=== PATIENT | male | born 1955 | race Caucasian/White ===

== ENCOUNTER 2017-02-13 02:49 | Emergency (ER) | payer MEDICAID, MEDICARE ==
[2017-02-13] MEDS ORDERED: Aspirin Low Dose CHEW TAB* 81 MG PO ONE (03:09)
[2017-02-13 03:34] LABS: Add Diff/Slide Review? Slide Review Added; Comments Flag Yes; Hematocrit 46 % (42-52); Hemoglobin 15.3 g/dl (14.0-18.0); Mean Corpuscular HGB Conc 33 g/dl (31-36); Mean Corpuscular Hemoglobin 30 pg (27-31); Mean Corpuscular Volume 91 fL (80-94); Mean Platelet Volume 9 um3 (7.4-10.4); Red Blood Count 5.03 10^6/ul (4.0-5.4); Red Cell Distribution Width 13 % (10.5-15); White Blood Count 8.9 10^3/ul (3.5-10.8)
[2017-02-13 03:49] LABS: Albumin 4.2 g/dL (3.2-5.2); BUN/Creatinine Ratio 14.1 (8-20); Calcium 9.5 mg/dL (8.6-10.3); EGFR African American 144.1 (>60); EGFR Non-African American 112.1 (>60); Globulin 3.1 g/dL (2-4); Magnesium 2.1 mg/dL (1.9-2.7); Total Bilirubin 0.4 mg/dL (0.2-1.0); Total Protein 7.3 g/dL (6.4-8.9)
[2017-02-13 04:08] LABS: Eosinophils % 3 % (0-6); Neutrophil % 70 % (38-83); RBC Morphology Normal (Normal); Reactive Lymph % 10 % (0-6)
--- NOTE | 2017-02-13 04:41 | ED ---
Asmita Bee Erika, scribed for Jim Keen MD on 02/13/17 at 0320 . Shortness of Breath - HPI Summary HPI Summary: Patient is a 61-year-old male presenting to the ED with a CC of SOB. Patient reports that he has been feeling mildly SOB for a few weeks intermittently. Yesterday, patient also developed pain is his chest, back, and left arm. Patient then developed diffuse tingling. Patient came in tonight because the SOB and tingling worsened. Symptoms were slightly alleviated by Spiriva at 00: 00 and albuterol at 02:00. He does also report he has had cold-like symptoms including cough for about 1 week. Patient has a Hx COPD, but does not use home O2. He smokes 10 cigarettes/day. - History of Current Complaint Chief Complaint: EDChestPainROMI Time Seen by Provider: 02/13/17 03:01 Hx Obtained From: Patient Onset/Duration: Gradual Onset, Lasting Weeks, Worse Since - tonight Timing: Intermittent Episodes Lasting: - minutes/hours Current Severity: Moderate Alleviating Factors: Bronchodilators - Allergy/Home Medications Allergies/Adverse Reactions: Allergies Allergy/AdvReac Type Severity Reaction Status Date / Time No Known Allergies Allergy Verified 03/13/15 09:18 PMH/Surg Hx/FS Hx/Imm Hx Endocrine/Hematology History: Reports: Hx Diabetes Cardiovascular History: Reports: Hx Angina, Hx Coronary Artery Disease - STENT, X3, Hx Hypercholesterolemia, Hx Hypertension, Hx Myocardial Infarction Respiratory History: Reports: Hx Chronic Obstructive Pulmonary Disease (COPD) Musculoskeletal History: Denies: Hx Scoliosis Infectious Disease History: No Infectious Disease History: Reports: Hx Shingles - 2011 Denies: Traveled Outside the [place] in Last 30 Days - Family History Known Family History: Positive: Cardiac Disease - Social History Alcohol Use: None Hx Substance Use: No Substance Use Type: Reports: None Hx Tobacco Use: Yes Smoking Status (MU): Light Every Day Tobacco Smoker Type: Cigarettes Length of Time of Smoking/Using Tobacco: SINCE AGE 11 Have You Smoked in the Last Year: Yes Review of Systems Positive: Chest Pain Positive: Shortness Of Breath, Cough Positive: Myalgia - back and left arm pain Positive: Paresthesia All Other Systems Reviewed And Are Negative: Yes Physical Exam Triage Information Reviewed: Yes Vital Signs On Initial Exam: Initial Vitals Temp Pulse Resp BP Pulse Ox 98 F 78 20 145/74 96 02/13/17 02:51 02/13/17 02:51 02/13/17 02:51 02/13/17 02:51 02/13/17 02:51 Vital Signs Reviewed: Yes Appearance: Positive: Well-Appearing, No Pain Distress Skin: Positive: Warm Head/Face: Positive: Normal Head/Face Inspection Eyes: Positive: [place] ENT: Positive: Hearing grossly normal Neck: Positive: Supple Respiratory/Lung Sounds: Positive: Breath Sounds Present, Wheezes - few scattered expiratory Cardiovascular: Positive: RRR Abdomen Description: Positive: Nontender, Soft Bowel Sounds: Positive: Present Musculoskeletal: Positive: Strength/ROM Intact Neurological: Positive: Sensory/Motor Intact, Alert, Oriented to Person Place, Time Psychiatric: Positive: Affect/Mood Appropriate Diagnostics - Vital Signs Vital Signs Temp Pulse Resp BP Pulse Ox 02/13/17 02:51 98 F 78 20 145/74 96 - Laboratory Lab Results: Lab Results 02/13/17 02/13/17 02/13/17 Range/Units 03:20 03:20 03:20 WBC 8.9 (3.5-10.8) 10^3/ul RBC 5.03 (4.0-5.4) 10^6/ul Hgb 15.3 (14.0-18.0) g/dl Hct 46 (42-52) % MCV 91 (80-94) fL MCH 30 (27-31) pg MCHC 33 (31-36) g/dl RDW 13 (10.5-15) % Plt Count 192 (150-450) 10^3/ul MPV 9 (7.4-10.4) um3 Neut % (Auto) 72.1 (38-83) % Lymph % (Auto) 17.6 L (25-47) % [place] % (Auto) 5.5 (1-9) % Eos % (Auto) 2.9 (0-6) % Baso % (Auto) 1.9 (0-2) % Absolute Neuts (auto) 6.4 (1.5-7.7) 10^3/ul Absolute Lymphs (auto) 1.6 (1.0-4.8) 10^3/ul Absolute Monos (auto) 0.5 (0-0.8) 10^3/ul Absolute Eos (auto) 0.3 (0-0.6) 10^3/ul Absolute Basos (auto) 0.2 (0-0.2) 10^3/ul Absolute Nucleated RBC 0 10^3/ul Neutrophils % 70 (38-83) % Lymphocytes % 11 L (25-47) % Reactive Lymphs % 10 H (0-6) % Monocytes % 5 (0-13) % Eosinophils % 3 (0-6) % Basophils % 1 (0-2) % Nucleated RBC % 0 Normal RBC Morphology Normal (Normal) Sodium 138 (133-145) mmol/L Potassium 4.0 (3.5-5.0) mmol/L Chloride 106 (101-111) mmol/L Carbon Dioxide 27 (22-32) mmol/L Anion Gap 5 (2-11) mmol/L BUN 10 (6-24) mg/dL Creatinine 0.71 (0.67-1.17) mg/dL Est GFR ( Amer) 144.1 (>60) Est GFR (Non-Af Amer) 112.1 (>60) BUN/Creatinine Ratio 14.1 (8-20) Glucose 143 H (70-100) mg/dL Lactic Acid 1.4 (0.5-2.0) mmol/L Calcium 9.5 (8.6-10.3) mg/dL Magnesium 2.1 (1.9-2.7) mg/dL Total Bilirubin 0.40 (0.2-1.0) mg/dL AST 14 (13-39) U/L ALT 11 (7-52) U/L Alkaline Phosphatase 61 (34-104) U/L Troponin I 0.00 (<0.04) ng/mL Total Protein 7.3 (6.4-8.9) g/dL Albumin 4.2 (3.2-5.2) g/dL Globulin 3.1 (2-4) g/dL Albumin/Globulin Ratio 1.4 (1-3) Result Diagrams: 02/13/17 03:20 02/13/17 03:20 Lab Statement: Any lab studies that have been ordered have been reviewed, and results considered in the medical decision making process. - Radiology CXR Xray Interpretation: No Acute Changes Radiology Interpretation Completed By: ED Physician - EKG 03:16 Cardiac Rate: NL - at 71 bpm EKG Rhythm: Sinus Rhythm Re-Evaluation - Re-Evaluation First Eval Re-Evaluation Time: 05:08 Change: Improved Comment: Discussed lab and imaging results. Patient agrees with plan Course/Dx - Course Assessment/Plan: A 61 y/o M presents to the ED with a CC of chest pain, SOB, and diffuse tingling. Patient was given 324 mg chewable ASA in the ED. Labs drawn. Troponin 0.00. Patient will be discharged home with follow up from his PCP. - Diagnoses Provider Diagnoses: Chest pain Discharge - Discharge Plan Condition: Stable Disposition: HOME Patient Education Materials: Chest Pain (ED) Referrals: Jim Salazar MD [Primary Care Provider] - Additional Instructions: Please follow up with your PCP The documentation as recorded by the Asmita akins Erika accurately reflects the service I personally performed and the decisions made by me, Jim Keen MD.
[2017-02-13 05:22] VITALS: BP 133/80
--- NOTE | 2017-02-13 08:25 | RAD ---
INDICATION: Chest pain. COMPARISON: Comparison is made with prior chest x-ray studies from November 18, 2009 and December 03, 2011. TECHNIQUE: Dual-energy PA and lateral views of the chest were obtained. FINDINGS: The heart is within normal limits in size. Mediastinal and hilar contours appear within normal limits. The lungs are hyperinflated with flattening of the diaphragms most consistent with chronic obstructive pulmonary disease. There is a small faint nodular density which projects at the right lung base measuring 1.6 x 1.3 cm in size. The lungs are otherwise clear. No pleural effusion is seen. The results of this exam were discussed with Dr. Nash. IMPRESSION: 1. POSSIBLE RIGHT BASILAR PULMONARY NODULE. RECOMMEND A NONCONTRAST CT OF THE CHEST FOR FURTHER EVALUATION. 2. COPD, NO EVIDENCE FOR ACUTE FINDING.
--- NOTE | 2017-02-13 12:46 | CONSULT ---
Consult Consult: Dr. Bennett called with the concern for a small lung nodule and a recommendation for F/U CT scan. I called Mr. Almodovar and he assured me he would F/U with his PMD.
== END 2017-02-13 05:27 | disposition home or self-care (01) ==
LOC: ED 02:49
DX: R07.9 Chest pain, unspecified (principal); J44.9 Chronic obstructive pulmonary disease, unspecified; M54.9 Dorsalgia, unspecified; R06.02 Shortness of breath; R05 Cough; F17.210 Nicotine dependence, cigarettes, uncomplicated
CPT/HCPCS: 36415; 71020; 80053; 83605; 83735; 84484; 85025; 93005; 99283; A9270-GY

== ENCOUNTER 2017-10-10 06:37 | Day surgery (SDC) | payer MEDICARE ==
[~2017-10-10 06:37] MED LIST: Acetaminophen TAB* 325 MG PO PRN; Buffered Lidocaine 0.9% SYRIN* 5 ML/SYR SYRINGE INTRADERM ONE
[2017-10-10] MEDS ORDERED: Midazolam* 1 MG/ML 2 ML VIAL (2 MG) ONE (07:28)
[2017-10-10] MEDS ORDERED: fentaNYL* 50 MCG/ML 2 ML VIAL (100 MCG VIAL) ONE (07:28)
[2017-10-10 08:19] VITALS: BP 114/73
[2017-10-10] MEDS ORDERED: Lidocaine 1% MPF* 2 ML VIAL ONE (15:15)
[2017-10-10] MEDS ORDERED: Povidone Iodine 5% OPTH* 30 ML BTL ONE (15:15)
[2017-10-10] MEDS ORDERED: Cyclopentolate 1% OPTH.SOL* 2 ML BTL ONE (15:15)
[2017-10-10] MEDS ORDERED: Phenylephrine 2.5% OPTH.SOL* 2 ML BTL ONE (15:15)
[2017-10-10] MEDS ORDERED: acetaZOLAMIDE TAB* 250 MG ONE (15:15)
[2017-10-10] MEDS ORDERED: Neomycin/Polymy/Dex OPHTH.OIN* 3.5 GM ONE (15:15)
[2017-10-10] MEDS ORDERED: Tropicamide 1% OPTH.SOL* BTL ONE (15:16)
[2017-10-10] MEDS ORDERED: Buffered Lidocaine 0.9% SYRIN* 5 ML/SYR SYRINGE ONE (15:16)
[2017-10-10] MEDS ORDERED: Tetracaine 0.5% OPTH.SOL 4 ML* 1 DROP BTL ONE (15:16)
--- NOTE | 2017-10-11 03:01 | OP ---
DATE OF OPERATION: 10/10/17 - [facility] DATE OF : 51 SURGEON: Johnathan Sauceda MD ANESTHESIOLOGIST: Dr. Leo ANESTHESIA: Monitored anesthesia care. PRE-OP DIAGNOSIS: Cataract, right eye. POST-OP DIAGNOSIS: Cataract, right eye. OPERATIVE PROCEDURE: Extracapsular cataract extraction of the right eye with intraocular lens implant. IMPLANTS: SN60WF 23.0 diopter lens to the right eye. COMPLICATIONS: None. DESCRIPTION OF PROCEDURE: The patient was given phenylephrine 2.5% and cyclopentolate 1% eye drops to the operative eye in the preoperative area. The patient was brought to the operating room where a time-out was taken to identify the correct patient, site and side of the surgery. The patient's right eye was prepped and draped in the usual sterile fashion with 5% Betadine. A second time- out was taken to verify the correct patient, site and side of the surgery and correct lens selection. A lid speculum was placed to the right eye. A 1-mm paracentesis blade was used to make a clear corneal incision in the superotemporal position. Preservative free 1% lidocaine was injected into the anterior chamber. DisCoVisc was then injected into the anterior chamber. A 2.75-mm keratome blade was used to make a triplanar incision at the inferotemporal position. A cystotome initiated a capsulorrhexis, which was completed with Utrata forceps in a continuous and curvilinear manner. Hydrodissection of the lens was performed with BSS on a cannula. The lens could be spun in the capsular bag. The phacoemulsification handpiece was used with a [id number] technique to remove the nucleus in its entirety with 14.51 CDE. The I/A handpiece then removed the residual cortical lens material. DisCoVisc was injected to inflate the capsular bag. The planned SN60WF 23.0 diopter lens was injected into the capsular bag. The residual DisCoVisc was removed from the eye with the I/A handpiece. The corneal incisions were hydrated and no leaks occurred at physiologic pressure around 20 mmHg per palpation. The lid speculum was removed and drapes removed. Maxitrol ointment was placed to the surface of the operative eye. An adhesive patch and shield were placed over the operative eye. The patient was taken to the postoperative area in stable condition. [id number]/[facility] #: [id number] JAYME
== END 2017-10-10 08:28 | disposition home or self-care (01) ==
LOC: OREAST 06:37
PROVIDERS: ATTEND Student in an Organized Health Care Education/Training Program
DX: E11.36 Type 2 diabetes mellitus with diabetic cataract (principal); H25.13 Age-related nuclear cataract, bilateral; J44.9 Chronic obstructive pulmonary disease, unspecified; E78.00 Pure hypercholesterolemia, unspecified; E11.51 Type 2 diabetes mellitus with diabetic peripheral angiopathy without gangrene; F17.210 Nicotine dependence, cigarettes, uncomplicated; I25.10 Atherosclerotic heart disease of native coronary artery without angina pectoris; E11.65 Type 2 diabetes mellitus with hyperglycemia; Z95.5 Presence of coronary angioplasty implant and graft; Z79.84 Long term (current) use of oral hypoglycemic drugs; Z79.82 Long term (current) use of aspirin
CPT/HCPCS: A9270-GY; J2250; J3010; V2632

== ENCOUNTER 2024-01-04 13:57 | Inpatient (IN) ==
[2024-01-04] MEDS ORDERED: Albuterol/Ipratropium NEB.SOL (2.5/0.5 MG) 3 ML NEB.SOLN ONE (14:04)
[2024-01-04 14:33] LABS: ABS Monocytes 0.8 10^3/uL (0.0-1.1); ABS Neutrophils 9.2 10^3/uL (1.5-7.6); ABS Nucleated RBC 0.01 10^3/ul; Hematocrit 41.4 % (38-53); Hemoglobin 13.8 g/dL (13.2-16.3); Lymphocyte % 9.1 %; Mean Corpuscular Hemoglobin 30.5 pg (27-33); Mean Corpuscular Hgb Conc 33.4 g/dL (31-36); Mean Corpuscular Volume 91.5 fL (80-97); Mean Platelet Volume 8.5 fL (7.5-11.2); Platelet Count 184 10^3/uL (150-450); Red Blood Count 4.53 10^6/uL (4.06-5.63); Red Cell Distribution Width 13.2 % (12-17); White Blood Count 11.1 10^3/uL (3.6-10.2)
[2024-01-04] MEDS: methylPREDNISolone SOD SUCC 125 mg 2 ML VIAL IV ONE (14:39)
[2024-01-04] MEDS: Albuterol/Ipratropium NEB.SOL (2.5/0.5 MG) 3 ML NEB.SOLN INH SCH ×3 (14:40→20:10)
[2024-01-04 14:43] LABS: Resp Rate 16
[2024-01-04 14:44] LABS: PCO2 Arterial > 100 mmHg (35-45); PO2 Arterial 137 mmHg (80-100)
[2024-01-04 15:29] LABS: Resp Rate 16
[2024-01-04 15:34] LABS: PO2 Arterial 150 mmHg (80-100)
[2024-01-04 15:37] LABS: PCO2 Arterial 96 mmHg (35-45)
[2024-01-04] MEDS ORDERED: Succinylcholine 200 mg VIAL 20 mg/ml 10 ml VIAL (200 mg) ONE (15:40)
[2024-01-04] MEDS ORDERED: Rocuronium 50 mg VIAL 10 mg/ml 5 ml VIAL (50 mg) ONE ×2 (15:40→15:45)
[2024-01-04] MEDS ORDERED: Propofol 10 mg/ml 100 ML BTL 1,000 MG/100 ML BTL ONE (15:42)
[2024-01-04 15:43] LABS: Albumin 4.2 g/dL (3.2-5.2); Albumin/Globulin Ratio 1.4 (1-3); C Reactive Protein 158.99 mg/L (<8.01); Calcium 9.3 mg/dL (8.6-10.3); Creatinine, Serum 0.55 mg/dL (0.67-1.17); Potassium 4.9 mmol/L (3.5-5.0); Total Bilirubin 0.6 mg/dL (0.2-1.0); Total Protein 7.2 g/dL (6.4-8.9); eGFR CKD-EPI 106.6 (>60)
[2024-01-04] MEDS ORDERED: fentaNYL 250 mcg/5 ml 50 MCG/ML 5 ml VIAL (250 MCG) ONE (15:45)
[2024-01-04] MEDS ORDERED: Etomidate 40 mg/20 ml (2 MG/ML) 20 ml VIAL (40 mg) ONE (15:45)
[2024-01-04] MEDS: Propofol 10 mg/ml 100 ML BTL 1,000 MG/100 ML BTL IV SCH (16:00)
[2024-01-04 16:01] LABS: High Sensitivity Troponin 1 Hr 42 pg/mL (<20)
[2024-01-04] MEDS: Midazolam 2 mg/2 ml VIAL 1 mg/ml 2 ml VIAL (2 mg) ONE (16:56)
[2024-01-04] MEDS: Midazolam 2 mg/2 ml VIAL 1 mg/ml 2 ml VIAL (2 mg) IV SLOW PU ONE (16:56)
[2024-01-04] MEDS ORDERED: fentaNYL INFUSION 50 mcg/mL VL 2,500 MCG/50 ML VIAL IV SCH (17:00)
[2024-01-04] MEDS: Chlorhexidine MOUTHWASH 0.12% 15 ML UDC SWISH SPIT SCH (17:00)
[2024-01-04] MEDS: Pantoprazole VIAL 40 MG VIAL IV SCH (17:04)
[2024-01-04] MEDS: Dexamethasone IV 4 MG/ML VIAL 1 ml VIAL IV SLOW PU SCH (17:08)
[2024-01-04] MEDS: Enoxaparin 40 MG/0.4 ML SYR SUBCUT SCH (17:11)
[2024-01-04 17:30] LABS: Resp Rate 20
[2024-01-04 17:37] LABS: PCO2 Arterial 53 mmHg (35-45); PO2 Arterial 65 mmHg (80-100)
[2024-01-04] MEDS: Azithromycin 500 mg/250 ml NS 500 MG/250 ML BAG IVPB SCH (17:46)
[2024-01-04] MEDS: cefTRIAXone 2 gm/50 mL D5W 2 GM/50 ML BAG IV SCH (18:04)
[2024-01-04] MEDS: Lactated Ringers 1000 ml BAG 1,000 ML IV SCH (21:13)
[2024-01-05] MEDS: Midazolam 2 mg/2 ml VIAL 1 mg/ml 2 ml VIAL (2 mg) IV SLOW PU ONE ×2 (04:31→11:52)
[2024-01-05 04:46] LABS: ABS Lymphocytes 0.6 10^3/uL (1.0-4.8); ABS Monocytes 0.4 10^3/uL (0.0-1.1); ABS Neutrophils 5.4 10^3/uL (1.5-7.6); ABS Nucleated RBC 0.01 10^3/ul; Hemoglobin 13.3 g/dL (13.2-16.3); Lymphocyte % 8.9 %; Mean Corpuscular Hemoglobin 30.8 pg (27-33); Mean Corpuscular Hgb Conc 34.1 g/dL (31-36); Mean Corpuscular Volume 90.6 fL (80-97); Mean Platelet Volume 8.7 fL (7.5-11.2); Nucleated Red Blood Cells % 0.1 %/100WBC (0.0-0.8); Platelet Count 167 10^3/uL (150-450); Red Cell Distribution Width 13.4 % (12-17); White Blood Count 6.4 10^3/uL (3.6-10.2)
[2024-01-05 05:19] LABS: Anion Gap 9 mmol/L (2-16); Blood Urea Nitrogen 37 mg/dL (6-24); CO2 Carbon Dioxide 28 mmol/L (22-32); Calcium 8.9 mg/dL (8.6-10.3); Chloride 100 mmol/L (101-111); Creatinine, Serum 0.76 mg/dL (0.67-1.17); Glucose 160 mg/dL (70-100); Magnesium 2.1 mg/dL (1.9-2.7); Sodium 137 mmol/L (135-145); eGFR CKD-EPI 96.7 (>60)
[2024-01-05] MEDS: Lactated Ringers 1000 ml BAG 1,000 ML IV SCH (05:39)
[2024-01-05 06:51] LABS: Potassium, Whole Blood 4.3 mmol/L (3.4-4.5)
[2024-01-05] MEDS ORDERED: Lorazepam PYXIS KEY PRN (08:19)
[2024-01-05] MEDS: LORazepam 2 mg VIAL 1 ml ONE (08:26)
[2024-01-05] MEDS: LORazepam 2 mg VIAL 1 ml IV PUSH ONE (08:26)
[2024-01-05] MEDS ORDERED: fentaNYL 100 mcg/2 ml 50 MCG/ML VIAL IV SLOW PU PRN (11:17)
[2024-01-05] MEDS: fentaNYL INFUSION 50 mcg/mL VL 2,500 MCG/50 ML VIAL IV SCH (11:34)
[2024-01-05] MEDS: Albuterol/Ipratropium NEB.SOL (2.5/0.5 MG) 3 ML NEB.SOLN INH SCH (19:25)
[2024-01-05 19:45] LABS: Urine Appearance Clear; Urine Bilirubin Negative (Negative); Urine Blood Negative (Negative); Urine Color Yellow; Urine Glucose Negative (Negative); Urine Ketones Negative (Negative); Urine Nitrite Negative (Negative); Urine Protein Trace (Negative); Urine Specific Gravity 1.033 (1.002-1.030); Urine Urobilinogen Negative (Negative)
[2024-01-06 04:55] LABS: ABS Lymphocytes 0.4 10^3/uL (1.0-4.8); ABS Monocytes 0.6 10^3/uL (0.0-1.1); ABS Neutrophils 7.3 10^3/uL (1.5-7.6); ABS Nucleated RBC 0.01 10^3/ul; Hematocrit 35.6 % (38-53); Hemoglobin 12.1 g/dL (13.2-16.3); Lymphocyte % 5.2 %; Mean Corpuscular Hemoglobin 30.8 pg (27-33); Mean Corpuscular Hgb Conc 34.1 g/dL (31-36); Mean Corpuscular Volume 90.4 fL (80-97); Mean Platelet Volume 8.7 fL (7.5-11.2); Nucleated Red Blood Cells % 0.1 %/100WBC (0.0-0.8); Platelet Count 144 10^3/uL (150-450); Red Blood Count 3.94 10^6/uL (4.06-5.63); Red Cell Distribution Width 13.8 % (12-17); White Blood Count 8.3 10^3/uL (3.6-10.2)
[2024-01-06 05:39] LABS: Calcium 8.7 mg/dL (8.6-10.3); Creatinine, Serum 0.54 mg/dL (0.67-1.17); Magnesium 2.1 mg/dL (1.9-2.7); Potassium 4.4 mmol/L (3.5-5.0); eGFR CKD-EPI 107.2 (>60)
[2024-01-06] MEDS: Midazolam 2 mg/2 ml VIAL 1 mg/ml 2 ml VIAL (2 mg) IV SLOW PU PRN (06:21)
[2024-01-07 05:36] LABS: ABS Basophils 0.1 10^3/uL (0.0-0.1); ABS Lymphocytes 0.5 10^3/uL (1.0-4.8); ABS Monocytes 0.7 10^3/uL (0.0-1.1); ABS Neutrophils 7.3 10^3/uL (1.5-7.6); Hemoglobin 11.4 g/dL (13.2-16.3); Lymphocyte % 5.6 %; Mean Corpuscular Hemoglobin 30.6 pg (27-33); Mean Corpuscular Hgb Conc 33.7 g/dL (31-36); Mean Platelet Volume 8.6 fL (7.5-11.2); Platelet Count 130 10^3/uL (150-450); Red Blood Count 3.73 10^6/uL (4.06-5.63); Red Cell Distribution Width 13.5 % (12-17); White Blood Count 8.6 10^3/uL (3.6-10.2)
[2024-01-07 06:26] LABS: Calcium 8.4 mg/dL (8.6-10.3); Creatinine, Serum 0.45 mg/dL (0.67-1.17); Magnesium 2.2 mg/dL (1.9-2.7); Potassium 4.3 mmol/L (3.5-5.0); eGFR CKD-EPI 113.3 (>60)
[2024-01-07] MEDS ORDERED: Albuterol/Ipratropium NEB.SOL (2.5/0.5 MG) 3 ML NEB.SOLN INH PRN (13:22)
[2024-01-07] MEDS: Cefepime 2 GM in Dextrose 2 GM/50 ML BAG IV SCH (20:05)
[2024-01-08 04:29] LABS: Hematocrit 34.9 % (38-53); Hemoglobin 11.8 g/dL (13.2-16.3); Mean Corpuscular Hemoglobin 31.2 pg (27-33); Mean Corpuscular Hgb Conc 33.9 g/dL (31-36); Mean Corpuscular Volume 91.8 fL (80-97); Platelet Count 130 10^3/uL (150-450); Red Cell Distribution Width 13.5 % (12-17); White Blood Count 8.3 10^3/uL (3.6-10.2)
[2024-01-08 05:38] LABS: Calcium 8.6 mg/dL (8.6-10.3); Creatinine, Serum 0.54 mg/dL (0.67-1.17); Magnesium 2.3 mg/dL (1.9-2.7); Potassium 4.3 mmol/L (3.5-5.0); eGFR CKD-EPI 107.2 (>60)
[2024-01-08] MEDS ORDERED: Lorazepam PYXIS KEY PRN (09:54)
[2024-01-08] MEDS: Morphine 10 MG/ML VIAL (1 ml) IV PRN (10:25)
[2024-01-08] MEDS: LORazepam 2 mg VIAL 1 ml IV PUSH PRN (10:25)
[2024-01-08 11:44] VITALS: BP 173/86
== END 2024-01-08 13:00 | disposition expired | DRG 208 ==
LOC: ED 13:57 → EDHOLD 15:19 → ICU 16:32
PROVIDERS: ADMIT Internal Medicine Critical Care Medicine; ATTEND Internal Medicine Critical Care Medicine